=== PATIENT | female | born 1975 | race African-American/Black ===

== ENCOUNTER 2018-10-26 18:37 | Inpatient (IN) | payer MEDICAID ==
[~2018-10-26] VITALS: Ht 165.1 cm; Wt 59.9 kg
[2018-10-26] MEDS ORDERED: HYDRALAZINE 20MG/ML VIAL IV ONE ×4 (19:45→21:45)
[2018-10-26] MEDS ORDERED: SODIUM CHLORIDE 0.9% 1000ML BAG (SEPSIS BOLUS) IV ONE (20:00)
[2018-10-26 20:03] LABS: HEMATOCRIT. 42.4 % (36.0-48.0); HEMOGLOBIN. 14.1 g/dL (12.0-16.0); MEAN CORPUSCULAR HEMOGLOBIN 24.2 pg (28.0-32.0); MEAN CORPUSCULAR VOLUME 72.6 fL (81.0-99.0); MEAN PLATELET VOLUME 8.4 fl (7.4-10.4); PLATELET 522 x1000/uL (130-400); RED BLOOD CELL COUNT 5.84 mill/uL (4.2-5.4); RED CELL DISTRIBUTION WIDTH 15.3 % (11.6-14.6)
[2018-10-26 20:06] LABS: CHLORIDE 99 mEq/L (98-107)
[2018-10-26 20:08] LABS: INR 0.9; PROTHROMBIN TIME 9.6 sec (9.6-11.0)
[2018-10-26 20:11] LABS: ETHANOL BLOOD < 10 mg/dL
[2018-10-26 20:14] LABS: CREATINE KINASE 86 IU/L (26-192)
[2018-10-26] MEDS ORDERED: VANCOMYCIN 1 G PREMIX 200 ML IV ONE (20:15)
[2018-10-26] MEDS ORDERED: PIPERACILLIN/TAZ 3.375G PREMIX 50 ML IV ONE (20:15)
[2018-10-26] MEDS ORDERED: LORAZEPAM 2MG/ML CPJ IV ONE (20:30)
[2018-10-26 20:32] LABS: PLATELET ESTIMATE INCREASED
[2018-10-26 20:33] LABS: CLARITY URINE CLEAR (CLEAR); COLOR URINE YELLOW (YELLOW); KETONES URINE NEGATIVE (NEGATIVE); LEUKOCYTE ESTERASE URINE NEGATIVE (NEGATIVE); NITRITE URINE NEGATIVE (NEGATIVE); OCCULT BLOOD URINE TRACE (NEGATIVE); PH URINE 7.5 (4.5-8.0); PROTEIN URINE 4+ (NEGATIVE); SPECIFIC GRAVITY URINE 1.015 (1.005-1.030)
[2018-10-26] MEDS ORDERED: DILTIAZEM HCL 5MG/ML 5ML VIAL IV ONE ×2 (20:45→21:45)
[2018-10-26 20:53] LABS: *AMPHETAMINES SCREEN URINE NEGATIVE (NEGATIVE); *BARBITURATES SCREEN URINE NEGATIVE (NEGATIVE)
[2018-10-26 20:54] LABS: *BENZODIAZEPINES SCREEN URINE NEGATIVE (NEGATIVE); *COCAINE SCREEN URINE NEGATIVE (NEGATIVE); CANNABINOID URINE SCREEN NEGATIVE (NEGATIVE); METHADONE URINE SCREEN NEGATIVE (NEGATIVE); OPIATES URINE SCREEN NEGATIVE (NEGATIVE); PHENCYCLIDINE URINE SCREEN NEGATIVE (NEGATIVE)
[2018-10-26] MEDS ORDERED: KCL 20MEQ/100ML PREMIX 100 ML IV ONE (21:45)
[2018-10-26 22:24] LABS: BG FRACTION INSPIRED OXYGEN 21; BG HCO3 ACT 23.2 mmol/L (22.0-26.0); BG PCO2 27.6 mmHg (35.0-45.0); BG PH 7.542 (7.350-7.450); BG PO2 88.8 mmHg (75.0-100.0); BG SAMPLE SITE LEFT BRACHIAL; BG VENT MODE ROOM AIR
[2018-10-26 22:50] VITALS: BP 189/114
[2018-10-26] MEDS ORDERED: PIPERACILLIN/TAZ 3.375G PREMIX 50 ML IV SCH (23:45)
[2018-10-26] MEDS ORDERED: LORAZEPAM 2MG/ML CPJ IV PRN (23:45)
[2018-10-27] VITALS (22 sets, daily range): BP systolic 114–197; BP diastolic 43–128
[2018-10-27] MEDS: SODIUM CHLORIDE 0.9% 1,000 ML IV SCH ×2 (00:20→14:24)
[2018-10-27] MEDS: HYDRALAZINE 20MG/ML VIAL IV PRN ×2 (00:20→08:13)
[2018-10-27] MEDS ORDERED: DEXTROSE 50% WATER 50ML SYRINGE IV PRN ×2 (01:00→13:00)
[2018-10-27] MEDS ORDERED: AMLODIPINE 5MG TABLET PO SCH (04:45)
[2018-10-27] MEDS ORDERED: LABETALOL 5MG/ML SYR 20 MG/4 ML SYRINGE IV NR (04:45)
[2018-10-27] MEDS: PIPERACILLIN/TAZ 3.375G PREMIX 50 ML IV SCH ×3 (05:17→22:19)
[2018-10-27] MEDS: BLOOD SUGAR DIAGNOSTIC STRIP TEST SCH ×4 (06:46→23:06)
[2018-10-27] MEDS: VANCOMYCIN 750 MG PREMIX 150 ML IV SCH ×3 (08:13→23:48)
[2018-10-27 11:28] LABS: HEMATOCRIT. 49.5 % (36.0-48.0); HEMOGLOBIN. 16.5 g/dL (12.0-16.0); MEAN CORPUSCULAR HEMOGLOBIN 24.1 pg (28.0-32.0); MEAN CORPUSCULAR VOLUME 72.2 fL (81.0-99.0); MEAN PLATELET VOLUME 8.5 fl (7.4-10.4); PLATELET 458 x1000/uL (130-400); RED BLOOD CELL COUNT 6.85 mill/uL (4.2-5.4); RED CELL DISTRIBUTION WIDTH 16.3 % (11.6-14.6)
[2018-10-27 11:36] LABS: CHLORIDE 98 mEq/L (98-107)
[2018-10-27] MEDS: DILTIAZEM HCL 125 MG in DEXT 5% WATER 100 ML IV PRN (13:42)
[2018-10-27] MEDS ORDERED: ISOSORBIDE MONONITRATE 60MG TABLET SR 24HR PO SCH (14:00)
[2018-10-27] MEDS: LOSARTAN POTASSIUM 100 MG TABLET PO SCH (14:00)
[2018-10-27] MEDS: AMLODIPINE 10MG TABLET PO SCH (14:00)
[2018-10-27] MEDS: ASPIRIN 81MG TABLET PO SCH (14:00)
[2018-10-27] MEDS ORDERED: DILTIAZEM HCL 300MG CAPSULE SR 24HR PO SCH (14:00)
[2018-10-27] MEDS: HYDRALAZINE HCL 50MG TABLET PO SCH ×2 (14:00→23:28)
[2018-10-27 14:38] LABS: NUCLEATED RED BLOOD CELLS 1 /100 WBC; PLATELET ESTIMATE INCREASED
[2018-10-27] MEDS: INSULIN LISPRO 100 UNITS/ML SUBCUT SCH ×3 (14:47→21:00)
[2018-10-27] MEDS ORDERED: POTASSIUM CHLORIDE INJ 40 MEQ in DEXT 5% WATER 250 ML IV SCH (15:00)
[2018-10-27] MEDS: ENALAPRIL 2.5MG/2ML VIAL 2ML IV SCH ×2 (16:03→23:51)
[2018-10-27] MEDS: METOPROLOL TARTRATE 5MG/5ML VIAL IV SCH ×2 (18:00→21:35)
[2018-10-27 18:02] LABS: HEPATITIS B SURFACE ANTIGEN NEGATIVE
[2018-10-27 18:32] LABS: HEPATITIS A AB IGM NEGATIVE (NEGATIVE)
[2018-10-27] MEDS: ENOXAPARIN 60MG/0.6ML SYR SUBCUT SCH (18:35)
[2018-10-27] MEDS ORDERED: NITROGLYCERIN OINT 1GM/INCH UDPKT TD SCH (22:00)
[2018-10-27] MEDS: ATORVASTATIN CALCIUM 40MG TABLET PO SCH (22:19)
[2018-10-27] MEDS: NITROGLYCERIN OINT 1GM/INCH UDPKT TD SCH (23:04)
[2018-10-28] VITALS (46 sets, daily range): BP systolic 103–215; BP diastolic 23–112
[2018-10-28] MEDS: SODIUM CHLORIDE 0.9% 1,000 ML IV SCH (03:43)
[2018-10-28] MEDS: DILTIAZEM HCL 125 MG in DEXT 5% WATER 100 ML IV PRN (04:03)
[2018-10-28] MEDS: HYDRALAZINE HCL 50MG TABLET PO SCH ×3 (05:11→21:41)
[2018-10-28] MEDS: PIPERACILLIN/TAZ 3.375G PREMIX 50 ML IV SCH ×3 (05:11→21:54)
[2018-10-28] MEDS: ENALAPRIL 2.5MG/2ML VIAL 2ML IV SCH (05:12)
[2018-10-28] MEDS: METOPROLOL TARTRATE 5MG/5ML VIAL IV SCH ×2 (05:12→11:59)
[2018-10-28] MEDS: NITROGLYCERIN OINT 1GM/INCH UDPKT TD SCH ×4 (05:12→23:44)
[2018-10-28] MEDS: ENOXAPARIN 60MG/0.6ML SYR SUBCUT SCH (05:13)
[2018-10-28] MEDS: BLOOD SUGAR DIAGNOSTIC STRIP TEST SCH ×4 (06:50→21:36)
[2018-10-28 06:58] LABS: BASOPHILS % 0.4 % (0.0-2.0); HEMATOCRIT. 42.6 % (36.0-48.0); HEMOGLOBIN. 13.9 g/dL (12.0-16.0); LYMPHOCYTES % 7.3 % (20.0-50.0); MEAN CORPUSCULAR VOLUME 73.8 fL (81.0-99.0); MEAN PLATELET VOLUME 8.8 fl (7.4-10.4); MONOCYTES % 6.9 % (2.0-8.0); NEUTROPHILS % 85.4 % (40.0-76.0); PLATELET 309 x1000/uL (130-400); RED BLOOD CELL COUNT 5.77 mill/uL (4.2-5.4); RED CELL DISTRIBUTION WIDTH 15.9 % (11.6-14.6)
[2018-10-28] MEDS ORDERED: SODIUM CHLORIDE 0.45% 1,000 ML IV SCH (07:45)
[2018-10-28] MEDS: INSULIN LISPRO 100 UNITS/ML SUBCUT SCH ×4 (08:00→21:36)
[2018-10-28] MEDS: VANCOMYCIN 750 MG PREMIX 150 ML IV SCH (08:06)
[2018-10-28] MEDS ORDERED: HEPARIN 5000 UNITS/ML VIAL IV NR (08:45)
[2018-10-28] MEDS: AMLODIPINE 10MG TABLET PO SCH (09:00)
[2018-10-28] MEDS ORDERED: SODIUM CHL 0.45% + KCL 20MEQ/L 1,000 ML IV SCH (09:00)
[2018-10-28] MEDS: LOSARTAN POTASSIUM 100 MG TABLET PO SCH (09:26)
[2018-10-28] MEDS: ASPIRIN 81MG TABLET PO SCH (09:26)
[2018-10-28] MEDS ORDERED: POTASSIUM CHLORIDE INJ 40 MEQ in DEXT 5% WATER 250 ML IV NR (11:00)
[2018-10-28] MEDS: SODIUM BICARBONATE 100 MEQ in SODIUM CHLORIDE 0.45% 1,000 ML IV SCH ×2 (11:06→17:01)
[2018-10-28] MEDS ORDERED: NITROGLYCERIN 50MCG/ML 10ML VIAL (CATH LAB) IV ONE (11:25)
[2018-10-28] MEDS ORDERED: NICARDIPINE 100MCG/ML 10ML VIAL (CATH LAB) IV ONE (11:25)
[2018-10-28] MEDS ORDERED: HEPARIN SODIUM 1,000 UNIT/1ML VIAL IV ONE (11:25)
[2018-10-28 11:46] LABS: T4 FREE 1.16 ng/dL (0.76-1.46)
[2018-10-28 12:34] LABS: FOLIC ACID (FOLATE) SERUM > 20.00 ng/mL (>5.38)
[2018-10-28 12:41] LABS: VITAMIN B12 SERUM 1233 pg/mL (211-911)
[2018-10-28] MEDS ORDERED: FENTANYL CITRATE/PF 50MCG/ML 2ML VIAL ONE (12:49)
[2018-10-28] MEDS ORDERED: ASPIRIN/SOD BICARB/CITRIC ACID 324MG TAB EFF ONE (12:49)
[2018-10-28] MEDS ORDERED: MIDAZOLAM HCL 2 MG/2 ML VIAL ONE (12:49)
[2018-10-28] MEDS ORDERED: IODIXANOL 320MG/ML 100 ML BOTTLE IV ONE (12:50)
[2018-10-28] MEDS ORDERED: LIDOCAINE HCL 1% 20ML VIAL (Pyxis) INJ ONE (12:50)
[2018-10-28] MEDS ORDERED: IOHEXOL-300 100 ML BOTTLE ONE (13:45)
[2018-10-28] MEDS ORDERED: CLOPIDOGREL 75MG TABLET PO NR (14:45)
[2018-10-28] MEDS ORDERED: ONDANSETRON HCL 4MG/2ML INJ IV PRN (14:45)
[2018-10-28] MEDS ORDERED: ATROPINE SULFATE 1MG/10ML SYR IV PRN (14:45)
[2018-10-28] MEDS ORDERED: ACETAMINOPHEN 325MG TABLET PO PRN (14:45)
[2018-10-28] MEDS ORDERED: DILTIAZEM HCL 125 MG in DEXT 5% WATER 100 ML IV PRN (14:46)
[2018-10-28] MEDS ORDERED: CLOPIDOGREL 75MG TABLET ONE (14:59)
[2018-10-28] MEDS ORDERED: SODIUM BICARBONATE 100 MEQ in SODIUM CHLORIDE 0.45% 1,000 ML IV SCH ×2 (16:00→17:00)
[2018-10-28] MEDS: NITROGLYCERIN 50MG PREMIX 250 ML IV PRN (16:53)
[2018-10-28] MEDS: NEBIVOLOL HCL 5 MG TABLET PO SCH ×2 (17:00→17:01)
[2018-10-28] MEDS ORDERED: CARVEDILOL 3.125 MG TABLET PO SCH (18:00)
[2018-10-28] MEDS ORDERED: ENOXAPARIN 40MG/0.4ML SYR SUBCUT NR (21:00)
[2018-10-28 21:31] LABS: UCG SCREEN NEGATIVE
[2018-10-28] MEDS: ATORVASTATIN CALCIUM 40MG TABLET PO SCH (21:35)
[2018-10-29] VITALS (70 sets, daily range): BP systolic 82–199; BP diastolic 54–102
[2018-10-29] MEDS: NITROGLYCERIN 50MG PREMIX 250 ML IV PRN (04:42)
[2018-10-29] MEDS: HYDRALAZINE HCL 50MG TABLET PO SCH ×3 (05:42→21:24)
[2018-10-29] MEDS: NITROGLYCERIN OINT 1GM/INCH UDPKT TD SCH ×3 (05:42→18:00)
[2018-10-29] MEDS: PIPERACILLIN/TAZ 3.375G PREMIX 50 ML IV SCH ×3 (05:43→21:29)
[2018-10-29 06:28] LABS: BASOPHILS % 0.3 % (0.0-2.0); HEMATOCRIT. 31.7 % (36.0-48.0); HEMOGLOBIN. 10.5 g/dL (12.0-16.0); LYMPHOCYTES % 10.3 % (20.0-50.0); MEAN CORPUSCULAR HEMOGLOBIN 23.7 pg (28.0-32.0); MEAN CORPUSCULAR VOLUME 71.7 fL (81.0-99.0); MEAN PLATELET VOLUME 8.9 fl (7.4-10.4); MONOCYTES % 4.9 % (2.0-8.0); NEUTROPHILS % 84.5 % (40.0-76.0); PLATELET 291 x1000/uL (130-400); RED BLOOD CELL COUNT 4.42 mill/uL (4.2-5.4); RED CELL DISTRIBUTION WIDTH 15.6 % (11.6-14.6)
[2018-10-29 07:10] LABS: PHOSPHORUS 5.8 mg/dL (2.5-4.9)
[2018-10-29] MEDS: BLOOD SUGAR DIAGNOSTIC STRIP TEST SCH ×4 (07:50→21:07)
[2018-10-29] MEDS ORDERED: POTASSIUM CHLORIDE 20MEQ TABLET SR PO SCH (08:45)
[2018-10-29] MEDS: ASPIRIN 325MG TABLET PO SCH (08:59)
[2018-10-29] MEDS: NEBIVOLOL HCL 5 MG TABLET PO SCH ×2 (09:00→16:53)
[2018-10-29] MEDS: AMLODIPINE 10MG TABLET PO SCH (09:01)
[2018-10-29] MEDS: INSULIN LISPRO 100 UNITS/ML SUBCUT SCH ×4 (09:04→21:44)
[2018-10-29] MEDS: CLOPIDOGREL 75MG TABLET PO SCH (09:05)
[2018-10-29 12:48] LABS: HEMATOCRIT 32.9 % (36.0-48.0); HEMOGLOBIN 10.8 g/dL (12.0-16.0); MEAN CORPUSCULAR HEMOGLOBIN 23.7 pg (28.0-32.0); MEAN CORPUSCULAR VOLUME 72.4 fL (81.0-99.0); PLATELET 283 x1000/uL (130-400); RED BLOOD CELL COUNT 4.55 mill/uL (4.2-5.4); RED CELL DISTRIBUTION WIDTH 15.3 % (11.6-14.6)
[2018-10-29 16:24] LABS: BASOPHILS % 0.3 % (0.0-2.0); HEMOGLOBIN. 10.7 g/dL (12.0-16.0); LYMPHOCYTES % 11.8 % (20.0-50.0); MEAN CORPUSCULAR HEMOGLOBIN 23.5 pg (28.0-32.0); MEAN CORPUSCULAR VOLUME 72.4 fL (81.0-99.0); MEAN PLATELET VOLUME 9.1 fl (7.4-10.4); MONOCYTES % 4.4 % (2.0-8.0); NEUTROPHILS % 83.5 % (40.0-76.0); PLATELET 307 x1000/uL (130-400); RED BLOOD CELL COUNT 4.56 mill/uL (4.2-5.4); RED CELL DISTRIBUTION WIDTH 15.5 % (11.6-14.6)
[2018-10-29] MEDS: FAMOTIDINE 20MG TABLET PO SCH (19:08)
[2018-10-29] MEDS: HYDRALAZINE 20MG/ML VIAL IV PRN (19:14)
[2018-10-29] MEDS: ATORVASTATIN CALCIUM 40MG TABLET PO SCH (21:24)
[2018-10-30] VITALS (58 sets, daily range): BP systolic 135–200; BP diastolic 77–117
[2018-10-30] MEDS: NITROGLYCERIN OINT 1GM/INCH UDPKT TD SCH ×4 (00:18→18:21)
[2018-10-30] MEDS: HYDRALAZINE 20MG/ML VIAL IV PRN ×3 (01:22→21:00)
[2018-10-30] MEDS: MORPHINE SULFATE 4 MG/ML CPJ (NOT FOR IM USE) IV PRN ×2 (05:26→19:59)
[2018-10-30] MEDS: PIPERACILLIN/TAZ 3.375G PREMIX 50 ML IV SCH ×3 (05:27→22:07)
[2018-10-30] MEDS: HYDRALAZINE HCL 50MG TABLET PO SCH (05:34)
[2018-10-30 05:45] LABS: BASOPHILS % 0.4 % (0.0-2.0); HEMATOCRIT. 33.9 % (36.0-48.0); HEMOGLOBIN. 11.3 g/dL (12.0-16.0); MEAN CORPUSCULAR HEMOGLOBIN 24.1 pg (28.0-32.0); MEAN CORPUSCULAR VOLUME 72.5 fL (81.0-99.0); MEAN PLATELET VOLUME 8.9 fl (7.4-10.4); MONOCYTES % 7.4 % (2.0-8.0); NEUTROPHILS % 80.2 % (40.0-76.0); PLATELET 322 x1000/uL (130-400); RED BLOOD CELL COUNT 4.67 mill/uL (4.2-5.4); RED CELL DISTRIBUTION WIDTH 15.3 % (11.6-14.6)
[2018-10-30 05:59] LABS: PHOSPHORUS 3.4 mg/dL (2.5-4.9)
[2018-10-30] MEDS ORDERED: POTASSIUM CHLORIDE 20MEQ TABLET SR PO NR (08:00)
[2018-10-30] MEDS ORDERED: POTASSIUM CHLORIDE 20MEQ TABLET SR PO ONE (08:00)
[2018-10-30] MEDS: BLOOD SUGAR DIAGNOSTIC STRIP TEST SCH ×4 (08:01→21:00)
[2018-10-30] MEDS: CLOPIDOGREL 75MG TABLET PO SCH (08:06)
[2018-10-30] MEDS: AMLODIPINE 10MG TABLET PO SCH (08:06)
[2018-10-30] MEDS: ASPIRIN 325MG TABLET PO SCH (08:06)
[2018-10-30] MEDS: FAMOTIDINE 20MG TABLET PO SCH (08:06)
[2018-10-30] MEDS: NEBIVOLOL HCL 5 MG TABLET PO SCH ×2 (08:07→18:20)
[2018-10-30] MEDS: DOCUSATE SODIUM 100MG CAPSULE PO SCH ×2 (08:07→18:20)
[2018-10-30] MEDS: INSULIN LISPRO 100 UNITS/ML SUBCUT SCH ×4 (08:08→21:12)
[2018-10-30] MEDS ORDERED: HYDRALAZINE HCL 25MG TABLET PO SCH (14:00)
[2018-10-30] MEDS: HYDRALAZINE HCL 100MG TABLET PO SCH ×2 (14:45→22:29)
[2018-10-30] MEDS: CLONIDINE 0.1MG TABLET PO PRN ×2 (19:00→19:49)
[2018-10-30] MEDS: ATORVASTATIN CALCIUM 40MG TABLET PO SCH (20:58)
[2018-10-30] MEDS ORDERED: CLONIDINE 0.2MG TABLET PO NR (22:45)
[2018-10-31] VITALS (98 sets, daily range): BP systolic 109–195; BP diastolic 69–111
[2018-10-31] MEDS: NICARDIPINE 50 MG in SODIUM CHLORIDE 0.9% 230 ML IV PRN ×2 (01:20→10:58)
[2018-10-31 05:19] LABS: BASOPHILS % 0.8 % (0.0-2.0); EOSINOPHILS % 0.7 % (0.0-5.0); HEMATOCRIT. 31.9 % (36.0-48.0); HEMOGLOBIN. 10.4 g/dL (12.0-16.0); MEAN CORPUSCULAR HEMOGLOBIN 23.7 pg (28.0-32.0); MEAN CORPUSCULAR VOLUME 72.5 fL (81.0-99.0); MEAN PLATELET VOLUME 8.7 fl (7.4-10.4); MONOCYTES % 9.2 % (2.0-8.0); NEUTROPHILS % 76.3 % (40.0-76.0); PLATELET 336 x1000/uL (130-400); RED CELL DISTRIBUTION WIDTH 15.7 % (11.6-14.6)
[2018-10-31] MEDS: PIPERACILLIN/TAZ 3.375G PREMIX 50 ML IV SCH ×3 (05:28→22:05)
[2018-10-31] MEDS: HYDRALAZINE HCL 100MG TABLET PO SCH ×3 (05:28→22:05)
[2018-10-31] MEDS: CLONIDINE 0.2MG TABLET PO SCH ×3 (05:29→22:05)
[2018-10-31 06:06] LABS: PHOSPHORUS 4.3 mg/dL (2.5-4.9)
[2018-10-31] MEDS: ASPIRIN 325MG TABLET PO SCH (08:30)
[2018-10-31] MEDS: INSULIN LISPRO 100 UNITS/ML SUBCUT SCH ×4 (08:30→20:33)
[2018-10-31] MEDS: MINOXIDIL 2.5MG TABLET PO SCH (08:31)
[2018-10-31] MEDS: NEBIVOLOL HCL 5 MG TABLET PO SCH ×2 (08:31→20:32)
[2018-10-31] MEDS: DOCUSATE SODIUM 100MG CAPSULE PO SCH ×2 (08:31→17:46)
[2018-10-31] MEDS: FAMOTIDINE 20MG TABLET PO SCH (08:32)
[2018-10-31] MEDS: BLOOD SUGAR DIAGNOSTIC STRIP TEST SCH ×4 (08:32→20:32)
[2018-10-31] MEDS: CLOPIDOGREL 75MG TABLET PO SCH (08:32)
[2018-10-31] MEDS ORDERED: POTASSIUM CHLORIDE 20MEQ TABLET SR PO SCH (10:00)
[2018-10-31] MEDS: NICARDIPINE 50 MG in SODIUM CHLORIDE 0.9% 230 ML IV SCH (10:00)
[2018-10-31] MEDS ORDERED: AMLODIPINE 5MG TABLET PO SCH (10:15)
[2018-10-31] MEDS ORDERED: NEBIVOLOL HCL 5 MG TABLET PO SCH (13:45)
[2018-10-31] MEDS ORDERED: AMLODIPINE 5MG TABLET PO NR (14:14)
[2018-10-31] MEDS: NITROGLYCERIN OINT 1GM/INCH UDPKT TD SCH (17:46)
[2018-10-31] MEDS: ATORVASTATIN CALCIUM 10MG TABLET PO SCH (20:31)
[2018-10-31] MEDS: AMLODIPINE 10MG TABLET PO SCH (20:32)
[2018-11-01] VITALS (48 sets, daily range): BP systolic 106–183; BP diastolic 71–102
[2018-11-01] MEDS: NITROGLYCERIN OINT 1GM/INCH UDPKT TD SCH ×5 (00:10→23:59)
[2018-11-01] MEDS: CLONIDINE 0.2MG TABLET PO SCH ×3 (05:52→20:40)
[2018-11-01] MEDS: HYDRALAZINE HCL 100MG TABLET PO SCH ×3 (05:52→21:46)
[2018-11-01] MEDS: PIPERACILLIN/TAZ 3.375G PREMIX 50 ML IV SCH ×3 (05:53→21:46)
[2018-11-01] MEDS: NICARDIPINE 50 MG in SODIUM CHLORIDE 0.9% 230 ML IV SCH (06:00)
[2018-11-01 07:33] LABS: BASOPHILS % 0.4 % (0.0-2.0); EOSINOPHILS % 1.2 % (0.0-5.0); HEMATOCRIT. 30.9 % (36.0-48.0); HEMOGLOBIN. 10.3 g/dL (12.0-16.0); LYMPHOCYTES % 15.8 % (20.0-50.0); MEAN CORPUSCULAR HEMOGLOBIN 24.1 pg (28.0-32.0); MEAN CORPUSCULAR VOLUME 72.4 fL (81.0-99.0); MEAN PLATELET VOLUME 8.8 fl (7.4-10.4); MONOCYTES % 9.6 % (2.0-8.0); PLATELET 401 x1000/uL (130-400); RED BLOOD CELL COUNT 4.27 mill/uL (4.2-5.4); RED CELL DISTRIBUTION WIDTH 15.1 % (11.6-14.6)
[2018-11-01] MEDS: BLOOD SUGAR DIAGNOSTIC STRIP TEST SCH ×3 (07:50→20:40)
[2018-11-01] MEDS: ASPIRIN 325MG TABLET PO SCH (08:27)
[2018-11-01] MEDS: DOCUSATE SODIUM 100MG CAPSULE PO SCH ×2 (08:27→17:27)
[2018-11-01] MEDS: FAMOTIDINE 20MG TABLET PO SCH (08:27)
[2018-11-01] MEDS: CLOPIDOGREL 75MG TABLET PO SCH (08:27)
[2018-11-01] MEDS: NEBIVOLOL HCL 5 MG TABLET PO SCH ×3 (08:28→21:47)
[2018-11-01] MEDS: AMLODIPINE 10MG TABLET PO SCH ×2 (08:28→20:40)
[2018-11-01] MEDS: MINOXIDIL 2.5MG TABLET PO SCH (08:28)
[2018-11-01] MEDS: INSULIN LISPRO 100 UNITS/ML SUBCUT SCH ×4 (08:29→20:39)
[2018-11-01 09:09] LABS: COMPLEMENT C3 94 mg/dL (82-167)
[2018-11-01] MEDS ORDERED: POTASSIUM CHLORIDE 20MEQ TABLET SR PO NR (11:27)
[2018-11-01] MEDS: ATORVASTATIN CALCIUM 10MG TABLET PO SCH (20:40)
[2018-11-02] VITALS (12 sets, daily range): BP systolic 113–158; BP diastolic 69–96
[2018-11-02] MEDS: CLONIDINE 0.2MG TABLET PO SCH ×3 (03:39→20:50)
[2018-11-02] MEDS: NEBIVOLOL HCL 5 MG TABLET PO SCH ×2 (05:27→11:59)
[2018-11-02] MEDS: PIPERACILLIN/TAZ 3.375G PREMIX 50 ML IV SCH ×3 (05:27→22:32)
[2018-11-02] MEDS: NITROGLYCERIN OINT 1GM/INCH UDPKT TD SCH ×2 (05:28→12:00)
[2018-11-02] MEDS: HYDRALAZINE HCL 100MG TABLET PO SCH ×3 (05:28→22:31)
[2018-11-02] MEDS: BLOOD SUGAR DIAGNOSTIC STRIP TEST SCH ×4 (06:54→21:31)
[2018-11-02] MEDS: FAMOTIDINE 20MG TABLET PO SCH (09:04)
[2018-11-02] MEDS: MINOXIDIL 2.5MG TABLET PO SCH ×2 (09:04→20:52)
[2018-11-02] MEDS: CLOPIDOGREL 75MG TABLET PO SCH (09:04)
[2018-11-02] MEDS: ASPIRIN 325MG TABLET PO SCH (09:04)
[2018-11-02] MEDS: DOCUSATE SODIUM 100MG CAPSULE PO SCH ×2 (09:04→17:53)
[2018-11-02] MEDS: INSULIN LISPRO 100 UNITS/ML SUBCUT SCH ×4 (09:05→21:00)
[2018-11-02] MEDS: AMLODIPINE 10MG TABLET PO SCH ×2 (09:06→20:50)
[2018-11-02 09:43] LABS: BASOPHILS % 0.9 % (0.0-2.0); EOSINOPHILS % 2.8 % (0.0-5.0); HEMATOCRIT. 32.7 % (36.0-48.0); HEMOGLOBIN. 10.7 g/dL (12.0-16.0); LYMPHOCYTES % 12.6 % (20.0-50.0); MEAN CORPUSCULAR HEMOGLOBIN 23.8 pg (28.0-32.0); MEAN CORPUSCULAR VOLUME 72.5 fL (81.0-99.0); MEAN PLATELET VOLUME 8.5 fl (7.4-10.4); MONOCYTES % 7.4 % (2.0-8.0); NEUTROPHILS % 76.3 % (40.0-76.0); PLATELET 452 x1000/uL (130-400); RED BLOOD CELL COUNT 4.51 mill/uL (4.2-5.4); RED CELL DISTRIBUTION WIDTH 15.3 % (11.6-14.6)
[2018-11-02 09:51] LABS: CHLORIDE 105 mEq/L (98-107)
[2018-11-02] MEDS ORDERED: POTASSIUM CHLORIDE 20MEQ TABLET SR PO NR (10:45)
[2018-11-02] MEDS ORDERED: CLONIDINE 0.1MG TABLET PO PRN (10:45)
[2018-11-02 15:08] LABS: ANTI-NUCLEAR ANTIBODIES DIRECT Negative (Negative)
[2018-11-02] MEDS: ISOSORBIDE MONONITRATE 30MG TABLET SR 24HR PO SCH ×2 (17:53→20:52)
[2018-11-02] MEDS: ATORVASTATIN CALCIUM 10MG TABLET PO SCH (20:50)
[2018-11-03] VITALS (11 sets, daily range): BP systolic 123–144; BP diastolic 71–86
[2018-11-03] MEDS: CLONIDINE 0.2MG TABLET PO SCH ×2 (03:51→12:01)
[2018-11-03] MEDS: HYDRALAZINE HCL 100MG TABLET PO SCH ×2 (05:58→15:31)
[2018-11-03] MEDS: PIPERACILLIN/TAZ 3.375G PREMIX 50 ML IV SCH (05:58)
[2018-11-03] MEDS: BLOOD SUGAR DIAGNOSTIC STRIP TEST SCH ×3 (06:15→16:47)
[2018-11-03 06:37] LABS: BASOPHILS % 0.9 % (0.0-2.0); EOSINOPHILS % 3.1 % (0.0-5.0); HEMATOCRIT. 30.3 % (36.0-48.0); HEMOGLOBIN. 9.8 g/dL (12.0-16.0); LYMPHOCYTES % 16.9 % (20.0-50.0); MEAN CORPUSCULAR HEMOGLOBIN 23.5 pg (28.0-32.0); MEAN CORPUSCULAR VOLUME 72.4 fL (81.0-99.0); MEAN PLATELET VOLUME 8.5 fl (7.4-10.4); MONOCYTES % 8.1 % (2.0-8.0); PLATELET 530 x1000/uL (130-400); RED BLOOD CELL COUNT 4.19 mill/uL (4.2-5.4); RED CELL DISTRIBUTION WIDTH 15.4 % (11.6-14.6)
[2018-11-03 07:12] LABS: CHLORIDE 107 mEq/L (98-107)
[2018-11-03 07:34] LABS: PHOSPHORUS 5.8 mg/dL (2.5-4.9)
[2018-11-03] MEDS: NEBIVOLOL HCL 5 MG TABLET PO SCH (08:19)
[2018-11-03] MEDS: DOCUSATE SODIUM 100MG CAPSULE PO SCH ×2 (08:19→16:47)
[2018-11-03] MEDS: AMLODIPINE 10MG TABLET PO SCH (08:20)
[2018-11-03] MEDS: FAMOTIDINE 20MG TABLET PO SCH (08:20)
[2018-11-03] MEDS: ASPIRIN 81MG EC TABLET PO SCH ×2 (08:20→17:00)
[2018-11-03] MEDS: ISOSORBIDE MONONITRATE 30MG TABLET SR 24HR PO SCH (08:20)
[2018-11-03] MEDS: CLOPIDOGREL 75MG TABLET PO SCH (08:20)
[2018-11-03] MEDS: MINOXIDIL 2.5MG TABLET PO SCH (08:20)
[2018-11-03] MEDS: INSULIN LISPRO 100 UNITS/ML SUBCUT SCH ×3 (08:21→17:00)
[2018-11-03] MEDS ORDERED: NEBI10TA2 MT (11:19)
[2018-11-03] MEDS ORDERED: HYDR25TA MT (11:19)
[2018-11-03] MEDS ORDERED: LOSA100T14 MT (11:19)
[2018-11-03] MEDS ORDERED: ASPI-1159 MT (11:19)
[2018-11-03] MEDS ORDERED: ISOS60TA4 MT (11:19)
[2018-11-03] MEDS ORDERED: HYDR-4135 MT (11:19)
[2018-11-03] MEDS ORDERED: ATOR80TA MT (11:19)
[2018-11-03] MEDS ORDERED: DILT360C28 MT (11:19)
[2018-11-03] MEDS ORDERED: AMLO10TA80 MT (11:19)
[2018-11-03] MEDS ORDERED: METF-414 MT (11:19)
[2018-11-03] MEDS ORDERED: SAXA5TAB MT (11:23)
== END 2018-11-03 19:15 | disposition home health service (06) | DRG 710 ==
LOC: ER 18:37 → 5EST 20:58 → EDBEDREQTM 21:03 → EDBEDREQSVC 21:03 → EDBEDREQ 21:03 → ENRESERV 21:55 → 5EST 10-27 11:06 → CVICU 10-28 16:32 → 3WST 11-01 12:11
PROVIDERS: ADMIT Internal Medicine; ATTEND Internal Medicine
PROC: 02HV33Z Insertion of Infusion Device into Superior Vena Cava, Percutaneous Approach (ICD-10-PCS; 2018-10-27)
PROC: B548ZZA Ultrasonography of Superior Vena Cava, Guidance (ICD-10-PCS; 2018-10-27)
PROC: 4A023N7 Measurement of Cardiac Sampling and Pressure, Left Heart, Percutaneous Approach (ICD-10-PCS; principal; 2018-10-28)
PROC: 027034Z Dilation of Coronary Artery, One Artery with Drug-eluting Intraluminal Device, Percutaneous Approach (ICD-10-PCS; 2018-10-28)
PROC: B2111ZZ Fluoroscopy of Multiple Coronary Arteries using Low Osmolar Contrast (ICD-10-PCS; 2018-10-28)
PROC: 4A00X4Z Measurement of Central Nervous Electrical Activity, External Approach (ICD-10-PCS; 2018-11-01)
DX: A41.9 Sepsis, unspecified organism (principal); N17.0 Acute kidney failure with tubular necrosis; I21.3 ST elevation (STEMI) myocardial infarction of unspecified site; I67.4 Hypertensive encephalopathy; K85.90 Acute pancreatitis without necrosis or infection, unspecified; G92 Toxic encephalopathy; I12.0 Hypertensive chronic kidney disease with stage 5 chronic kidney disease or end stage renal disease; E11.22 Type 2 diabetes mellitus with diabetic chronic kidney disease; E87.2 Acidosis; I25.82 Chronic total occlusion of coronary artery; T82.897A Other specified complication of cardiac prosthetic devices, implants and grafts, initial encounter; K75.9 Inflammatory liver disease, unspecified; D49.0 Neoplasm of unspecified behavior of digestive system; D72.823 Leukemoid reaction; D50.9 Iron deficiency anemia, unspecified; I16.0 Hypertensive urgency; E78.5 Hyperlipidemia, unspecified; E87.6 Hypokalemia; E11.65 Type 2 diabetes mellitus with hyperglycemia; E78.00 Pure hypercholesterolemia, unspecified; E86.0 Dehydration; Y83.8 Other surgical procedures as the cause of abnormal reaction of the patient, or of later complication, without mention of misadventure at the time of the procedure; I25.10 Atherosclerotic heart disease of native coronary artery without angina pectoris; I31.3 Pericardial effusion (noninflammatory); K57.90 Diverticulosis of intestine, part unspecified, without perforation or abscess without bleeding; N18.6 End stage renal disease; Z79.02 Long term (current) use of antithrombotics/antiplatelets; Z79.82 Long term (current) use of aspirin; Z91.14 Patient's other noncompliance with medication regimen; Z91.19 Patient's noncompliance with other medical treatment and regimen; Y92.89 Other specified places as the place of occurrence of the external cause; Z88.8 Allergy status to other drugs, medicaments and biological substances; Z95.5 Presence of coronary angioplasty implant and graft
CPT/HCPCS: 36415; 36569; 36600; 70551; 71045; 74176; 76700; 76937; 80048; 80061; 80076; 80202; 80305; 80320; 81025; 82140; 82378; 82550; 82570; 82607; 82728; 82746; 82805; 82962; 83036; 83540; 83550; 83605; 83735; 84100; 84145; 84156; 84439; 84443; 84481; 84484; 85027; 85347; 86038; 86160; 86301; 86592; 86705; 86709; 86803; 87340; 92928; 93005; 93306; 93458; 96365; 96375; 97162; 99291; C1725; C1726; C1769; C1874; C1887; C1893; J0360; J1644; J1650; J1815; J2060; J2250; J2270; J2543; J3010; J3370; J3480; J3490; J7030; J7040; J7050; J7060; Q9967; G0480